=== PATIENT | female | born 1980 | race Caucasian/White ===

== ENCOUNTER 2017-06-28 14:04 | Emergency (ER) | payer OTHER ==
[~2017-06-28] VITALS: Ht 152.4 cm; Wt 64.9 kg
[~2017-06-28 14:04] MED LIST: CLONAZEPAM 0.50.5 M1 PO; COUMADIN 2.5MG2.5 M1 PO; COUMADIN 5 MG TA5 M1 PO; FISH OIL 1,001000 M2 PO; FLONASE 0.05%50 MCG NASAL; FOLIC ACID 40400 MCG PO; FOLIC ACID0.8 MG PO; HYDROCODONE-AP1 EAC6 PO; LEVAQUIN 500 M500 M4 PO; MAGNESIUM OXID400 MG PO; NEURONTIN600 MG PO; NORCO 5-325 TA1 EACH PO; PROVIGIL 200 M200 MG PO; SEROQUEL 25 MG25 M1 PO; VENTOLIN HFA 1818 GM INH; VERAPAMIL ER180 MG PO; XARELTO15 MG PO; ZYRTEC10 MG PO; [UNRECOGNIZED DRUG - OTHER]; [UNRECOGNIZED DRUG - OTHER]
[2017-06-28] MEDS ORDERED: ZYRTEC10 M5 PO (14:14)
[2017-06-28] MEDS ORDERED: VERAPAMIL E.R240 M1 PO (14:14)
[2017-06-28] MEDS ORDERED: FLONASE 0.05%50 MCG NASAL (14:14)
[2017-06-28] MEDS ORDERED: BUTALB-APAP-CA1 EACH PO (14:15)
[2017-06-28] MEDS ORDERED: ASPIR 8181 MG PO (14:15)
[2017-06-28 15:01] LABS: ABSOLUTE BASOPHILS 0.1 thou/uL (0.0-0.2); ABSOLUTE EOSINOPHILS 0.1 thou/uL (0.0-0.7); ABSOLUTE LYMPHOCYTES 1.9 thou/uL (0.8-5.3); ABSOLUTE MONOCYTES 0.5 thou/uL (0.0-1.2); ABSOLUTE NEUTROPHILS 3.7 thou/uL (1.6-8.1); BASOPHILS 1.3 %; EOSINOPHILS 0.9 %; HEMATOCRIT 40.8 % (37.0-47.0); HEMOGLOBIN 13.4 gm/dL (12.0-15.0); LYMPHOCYTES 29.9 %; MCH 28.3 pg (26.0-34.0); MCHC 32.8 g/dL (28.0-37.0); MCV 86.3 fL (80.0-100.0); MONOCYTES 8.5 %; MPV 8.1 fl. (7.2-11.1); NUCLEATED RBCS 0 /100WBC; PLATELET COUNT* 388 thou/uL (150-400); POLYS 59.4 %; RBC 4.73 mil/uL (4.20-5.00); RDW-CV 13.8 % (10.5-14.5); WBC 6.2 thou/uL (4.0-11.0)
[2017-06-28 15:07] LABS: ANION GAP 7 mmol/L (7-16); BUN 13 mg/dL (7-18); CALCIUM 8.8 mg/dL (8.5-10.1); CHLORIDE 102 mmol/L (98-107); CO2 30 mmol/L (21-32); CREATININE 0.8 mg/dL (0.6-1.3); GLUCOSE 96 mg/dL (70-99); POTASSIUM 4.4 mmol/L (3.5-5.1); SODIUM 139 mmol/L (136-145)
[2017-06-28 15:08] LABS: APTT 25.7 Seconds (25.0-31.3); PROTIME 10.2 Seconds (9.20-11.50)
[2017-06-28 15:18] LABS: ALBUMIN 3.8 g/dL (3.4-5.0); ALKALINE PHOSPHATASE 83 U/L (46-116); NT-PRO BRAIN NAT PEPTIDE < 5 pg/mL (<300); SGOT 15 U/L (15-37); SGPT 14 U/L (30-65); TOTAL BILIRUBIN 0.3 mg/dL (<0.1-1.0); TOTAL PROTEIN 8.2 g/dL (6.4-8.2); TROPONIN-I LEVEL <0.06 ng/mL (<0.06)
[2017-06-28 16:40] VITALS: BP 126/68
--- NOTE | 2017-06-29 11:45 | EKG ---
[place] [address] ELECTROCARDIOGRAM REPORT Name: KASSIDY NAJERA Room: [facility]#: [id number] Admission: 06/28/17 Attend Phys: Discharge: 06/28/17 Date of : 82 Report #: [id number] THIS REPORT FOR: //name// [facility] ED Test Date: 2017-06-28 Test Time: 14:08:01 Pat Name: KASSIDY NAJERA Department: Room: Gender: F Rn Ortho: WALDO : 1980 Requested By: Marcia Gerardo Order Number: [id number] MD: Mu Ortiz Measurements Intervals [place] Rate: 84 P: 52 SC: 151 QRS: -24 QRSD: 86 T: 32 QT: 375 QTc: 444 Interpretive Statements Sinus rhythm Left ventricular hypertrophy, bivoltage Delayed R-wave progression Baseline wander in lead(s) V4 Compared to ECG 06/13/2016 15:21:06 T-wave abnormality no longer present Electronically Signed On 06-29-2017 11:45:[address] JUDGE by Mu Ortiz [email or web address] <ELECTRONICALLY SIGNED> By: Mu Ortiz MD, FACC 06/29/17 1145 1408 1408 Mu Ortiz MD, [facility] /EPI
== END 2017-06-28 16:41 | disposition home or self-care (01) ==
LOC: M.ERS 14:04
PROVIDERS: Physician Assistant
DX: R07.89 Other chest pain (principal); G43.909 Migraine, unspecified, not intractable, without status migrainosus; F10.99 Alcohol use, unspecified with unspecified alcohol-induced disorder; Z86.711 Personal history of pulmonary embolism; Z88.1 Allergy status to other antibiotic agents; Z88.8 Allergy status to other drugs, medicaments and biological substances

== ENCOUNTER 2018-09-24 14:53 | Emergency (ER) | payer OTHER ==
[~2018-09-24] VITALS: Ht 154.9 cm; Wt 61.7 kg
[~2018-09-24 14:53] MED LIST changes: +ASPIR 8181 MG PO; +BUTALB-APAP-CA1 EACH PO; +VERAPAMIL E.R240 M1 PO; +ZYRTEC10 M5 PO
[2018-09-24] MEDS ORDERED: BENADRYL25 MG PO (14:59)
[2018-09-24] MEDS ORDERED: FISH OIL 1,001000 M2 PO (14:59)
[2018-09-24] MEDS ORDERED: MAGOX 400400 MG PO (15:00)
[2018-09-24] MEDS ORDERED: ANTIVERT25 MG PO (15:00)
[2018-09-24] MEDS ORDERED: NEURONTIN 300300 M1 PO (15:00)
[2018-09-24] MEDS ORDERED: LEXAPRO 10 MG T10 M1 PO (15:01)
[2018-09-24 15:15] LABS: ABSOLUTE BASOPHILS 0.1 thou/uL (0.0-0.2); ABSOLUTE LYMPHOCYTES 1.3 thou/uL (0.8-5.3); ABSOLUTE MONOCYTES 0.4 thou/uL (0.0-1.2); ABSOLUTE NEUTROPHILS 4.2 thou/uL (1.6-8.1); BASOPHILS 0.9 %; EOSINOPHILS 0.5 %; HEMATOCRIT 35.6 % (37.0-47.0); HEMOGLOBIN 12.1 gm/dL (12.0-15.0); LYMPHOCYTES 21.3 %; MCH 29.5 pg (26.0-34.0); MCHC 33.9 g/dL (28.0-37.0); MCV 87.1 fL (80.0-100.0); MONOCYTES 7.2 %; MPV 7.7 fl. (7.2-11.1); NUCLEATED RBCS 0 /100WBC; PLATELET COUNT* 343 thou/uL (150-400); POLYS 70.1 %; RBC 4.09 mil/uL (4.20-5.00); RDW-CV 13.5 % (10.5-14.5)
[2018-09-24 15:25] LABS: APTT 26.7 Seconds (25.0-31.3); PROTIME 10.5 Seconds (9.20-11.50)
[2018-09-24 15:44] LABS: ALBUMIN 3.4 g/dL (3.4-5.0); ALKALINE PHOSPHATASE 85 U/L (46-116); ANION GAP 10 mmol/L (7-16); BUN 9 mg/dL (7-18); CALCIUM 8.2 mg/dL (8.5-10.1); CHLORIDE 104 mmol/L (98-107); CK-MB MASS 0.6 ng/mL (<0.5-3.6); CO2 25 mmol/L (21-32); CREATININE 0.7 mg/dL (0.6-1.3); GLUCOSE 128 mg/dL (70-99); LIPASE 245 U/L (73-393); MAGNESIUM 1.8 mg/dL (1.8-2.4); NT-PRO BRAIN NAT PEPTIDE 45 pg/mL (<300); POTASSIUM 3.2 mmol/L (3.5-5.1); SGOT 15 U/L (15-37); SGPT 16 U/L (30-65); SODIUM 139 mmol/L (136-145); TOTAL BILIRUBIN 0.2 mg/dL (<0.1-1.0); TOTAL PROTEIN 7.4 g/dL (6.4-8.2); TROPONIN-I LEVEL <0.06 ng/mL (<0.06)
[2018-09-24 15:56] VITALS: BP 148/85
--- NOTE | 2018-09-26 10:55 | EKG ---
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 : 1980 Requested By: Rancho Mccarthy Order Number: [id number] MD: Terrance Howe Measurements Intervals [place] Rate: 90 P: 55 [place]: 146 QRS: -26 QRSD: 98 T: 26 QT: 371 QTc: 454 Interpretive Statements Sinus rhythm Probable left atrial enlargement Low voltage, precordial leads RSR' in V1 or V2, probably normal variant Left ventricular hypertrophy Nonspecific T abnrm, anterolateral leads Compared to ECG 06/28/2017 14:08:01 Low QRS voltage now present RSR' in V1 or V2 now present Electronically Signed On 09-26-2018 10:55:03 CDT by Terrance Howe [email or web address] <ELECTRONICALLY SIGNED> By: Terrance Howe MD, [facility] 09/26/18 1055 1500 1500 Terrance Howe MD, [facility] /EPI
== END 2018-09-24 15:59 | disposition home or self-care (01) ==
LOC: M.ERS 14:53
PROVIDERS: Family Medicine
DX: R07.89 Other chest pain (principal); G43.909 Migraine, unspecified, not intractable, without status migrainosus; Z88.2 Allergy status to sulfonamides; Z88.8 Allergy status to other drugs, medicaments and biological substances

== ENCOUNTER 2019-02-04 16:32 | Emergency (ER) | payer OTHER ==
[~2019-02-04] VITALS: Ht 154.9 cm; Wt 63.5 kg
[~2019-02-04 16:32] MED LIST changes: +ANTIVERT25 MG PO; +BENADRYL25 MG PO; +LEXAPRO 10 MG T10 M1 PO; +MAGOX 400400 MG PO; +NEURONTIN 300300 M1 PO
[2019-02-04 16:49] LABS: ABSOLUTE BASOPHILS 0.1 thou/uL (0.0-0.2); ABSOLUTE LYMPHOCYTES 2.3 thou/uL (0.8-5.3); ABSOLUTE MONOCYTES 0.6 thou/uL (0.0-1.2); ABSOLUTE NEUTROPHILS 4.3 thou/uL (1.6-8.1); BASOPHILS 0.8 %; EOSINOPHILS 0.6 %; HEMATOCRIT 39.3 % (37.0-47.0); HEMOGLOBIN 13.1 gm/dL (12.0-15.0); MCH 29.6 pg (26.0-34.0); MCHC 33.3 g/dL (28.0-37.0); MCV 88.8 fL (80.0-100.0); MONOCYTES 7.7 %; MPV 8.1 fl. (7.2-11.1); NUCLEATED RBCS 0 /100WBC; PLATELET COUNT* 283 thou/uL (150-400); POLYS 58.9 %; RBC 4.43 mil/uL (4.20-5.00); RDW-CV 13.8 % (10.5-14.5); WBC 7.3 thou/uL (4.0-11.0)
[2019-02-04 17:00] LABS: ANION GAP 8 mmol/L (7-16); BUN 4 mg/dL (7-18); CALCIUM 8.7 mg/dL (8.5-10.1); CHLORIDE 103 mmol/L (98-107); CO2 28 mmol/L (21-32); CREATININE 0.7 mg/dL (0.6-1.3); GLUCOSE 105 mg/dL (70-99); POTASSIUM 3.8 mmol/L (3.5-5.1); SODIUM 139 mmol/L (136-145)
[2019-02-04 17:01] LABS: APTT 23.5 Seconds (25.0-31.3); PROTIME 10.1 Seconds (9.20-11.50)
[2019-02-04 17:09] LABS: ALBUMIN 3.8 g/dL (3.4-5.0); ALKALINE PHOSPHATASE 92 U/L (46-116); SGOT 17 U/L (15-37); SGPT 19 U/L (30-65); TOTAL BILIRUBIN 0.2 mg/dL (<0.1-1.0); TOTAL PROTEIN 8.1 g/dL (6.4-8.2); TROPONIN-I LEVEL <0.06 ng/mL (<0.06)
[2019-02-04 17:13] LABS: MAGNESIUM 1.8 mg/dL (1.8-2.4)
[2019-02-04] MEDS ORDERED: AZITHROMYCIN 2250 MG PO (19:32)
[2019-02-04 19:52] VITALS: BP 126/69
--- NOTE | 2019-02-05 15:50 | EKG ---
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1980 Requested By: Kassidy Colby Order Number: [id number] MD: Terrance Howe Measurements Intervals [place] Rate: 82 P: 54 [place]: 146 QRS: -24 QRSD: 86 T: 9 QT: 369 QTc: 431 Interpretive Statements Sinus rhythm Probable left atrial enlargement Left ventricular hypertrophy Compared to ECG 09/24/2018 15:00:08 No significant changes Electronically Signed On 02-05-2019 15:50:23 CDT by Terrance Howe [email or web address] <ELECTRONICALLY SIGNED> By: Terrance Howe MD, [facility] 02/05/19 1550 1638 1638 Terrance Howe MD, FACC /EPI
== END 2019-02-04 19:52 | disposition home or self-care (01) ==
LOC: M.ERS 16:32
PROVIDERS: Nurse Practitioner Psychiatric/Mental Health
DX: J18.9 Pneumonia, unspecified organism (principal); G43.909 Migraine, unspecified, not intractable, without status migrainosus; I10 Essential (primary) hypertension; Z88.2 Allergy status to sulfonamides; Z88.1 Allergy status to other antibiotic agents; Z88.8 Allergy status to other drugs, medicaments and biological substances

== ENCOUNTER → 2019-03-09 | Outpatient (CLI) | payer OTHER ==
[~2019-03-09] MED LIST changes: +AZITHROMYCIN 2250 MG PO
== END ==
LOC: M.RAD 17:03
DX: R05 Cough (principal); R50.9 Fever, unspecified

== ENCOUNTER 2020-12-17 16:22 | Emergency (ER) | payer OTHER ==
[~2020-12-17] VITALS: Ht 154.9 cm; Wt 63.5 kg
[2020-12-17] MEDS ORDERED: LISINOPRIL5 MG PO (16:38)
[2020-12-17] MEDS ORDERED: HYDROCODON-ACE1 EAC7 PO (16:40)
[2020-12-17] MEDS ORDERED: AUGMENTIN 875-1 EACH PO (16:40)
[2020-12-17 17:01] VITALS: BP 133/82
== END 2020-12-17 17:03 | disposition home or self-care (01) ==
LOC: M.ERS 16:22
DX: S51.831A Puncture wound without foreign body of right forearm, initial encounter (principal); I10 Essential (primary) hypertension; G43.909 Migraine, unspecified, not intractable, without status migrainosus; Z88.2 Allergy status to sulfonamides; Z88.1 Allergy status to other antibiotic agents; Z88.8 Allergy status to other drugs, medicaments and biological substances; W54.0XXA Bitten by dog, initial encounter; Y93.89 Activity, other specified; Y92.89 Other specified places as the place of occurrence of the external cause; Y99.8 Other external cause status